=== PATIENT | male | born 1935 | race Caucasian/White ===

== ENCOUNTER 2016-09-27 20:21 | Emergency (ER) | payer MEDICARE, OTHER ==
[2016-09-27] MEDS ORDERED: solu-MEDROL 125 MG IV ONE (20:30)
[2016-09-27] MEDS ORDERED: Sodium Chloride 0.9% 1000 ML 1,000 ML IV SCH (20:30)
[2016-09-27] MEDS ORDERED: BENADRYL 50 MG/ML IV ONE (20:30)
[2016-09-27] MEDS ORDERED: BENADRYL 50 MG/ML ONE (20:35)
[2016-09-27] MEDS ORDERED: Sodium Chloride 0.9% 1000 ML 1,000 ML ONE (20:35)
[2016-09-27] MEDS ORDERED: solu-MEDROL 125 MG ONE (20:35)
[2016-09-27 20:45] LABS: BASOPHIL % 0.2 % (0.0-0.4); Eosinophil % 2.4 % (0.00-5.0); Granulocytes % 51.1 % (36.0-66.0); Lymphocytes % 37.7 % (24.0-44.0); Mean Platelet Volume 9.8 fl (6-9.5); Monocytes % 8.6 % (0.0-12.0); Platelet Count 169 K/mm3 (150-450); Red Blood Count 5.38 M/mm3 (4.1-5.6); Red Cell Distribution Width 14.1 % (11.5-14.0); White Blood Count 9.9 K/mm3 (4.0-10.5)
--- NOTE | 2016-09-27 20:52 | ERPHSYRPT ---
- History of Present Illness Time Seen by Provider: 09/27/16 20:21 Source: patient Exam Limitations: no limitations Patient Subjective Stated Complaint: pt states that he began taking levaquin and xarelto today. states within half and hour of taking medication he began having itching and swelling. denies any difficulty breathing or swallowing Triage Nursing Assessment: pt alert and oriented, asnwers questions approp. pt ambulatory with steady gait ntoed. respiration nonlabored with lungs cta. face flushed with mild swelling to face and ears. pt denies difficulty breathing, red raised rash to abd, legs, back. Physician History: ONE HOUR AGO PT TOOK LEVAQUIN AND XARELTO BOTH FOR THE FIRST TIME FOR SWELLING IN THE LEGS AND REDNESS OF THE RIGHT LEG FOR THE PAST 3 DAYS. ABOUT 30 MINUTES AGO PT STARTED WITH ITCHING, SWELLING OF THE FACE AND GENERALIZED RED RASH. PT DENIES TIGHTNESS IN THE THROAT, SHORTNESS OF AIR, CHEST PAIN. Allergies/Adverse Reactions: levofloxacin [From Levaquin] Allergy (Verified 09/27/16 20:41) Rash Home Medications: Bumetanide 1 mg [Bumex 1 mg] 2 mg PO DAILY 09/27/16 [History] Hx Tetanus, Diphtheria Vaccination/Date Given: No (unsure) Hx Influenza Vaccination/Date Given: Yes (2016) Hx Pneumococcal Vaccination/Date Given: No Immunizations Up to Date: No - Review of Systems Constitutional: No Fever Ears, Nose, & Throat: No Throat Swelling Respiratory: No Dyspnea Cardiac: No Chest Pain Abdominal/Gastrointestinal: No Abdominal Pain, No Vomiting Musculoskeletal: Other (SWELLING OF LOWER LEGS; ERYTHEMA OF RIGHT LEG.) Skin: Rash, Other (FACIAL SWELLING) All Other Systems: Reviewed and Negative - Past Medical History Pertinent Past Medical History: Yes Cardiac History: Deep Vein Thrombosis Musculoskeletal History: Degenerative Disk Disease Male Reproductive Disorders: Prostate Problems - Past Surgical History Past Surgical History: Yes Gastrointestinal: Appendectomy Male Surgical History: Prostate Surgery - Social History Smoking Status: Never smoker Exposure to second hand smoke: No Drug Use: none Patient Lives Alone: No - Nursing Vital Signs Nursing Vital Signs: Initial Vital Signs Respiratory Rate 18 09/27/16 20:28 Blood Pressure 165/100 09/27/16 20:28 O2 Sat by Pulse Oximetry 99 09/27/16 20:28 Pain Scale Pain Intensity 0 - Physical Exam General Appearance: alert Eye Exam: PERRL/EOMI Ears, Nose, Throat Exam: pharynx normal, moist mucous membranes, other (NO PHARYNGEAL EDEMA) Neck Exam: full range of motion Respiratory Exam: lungs clear Cardiovascular Exam: normal heart sounds Gastrointestinal/Abdomen Exam: soft, normal bowel sounds Back Exam: normal range of motion Extremity Exam: swelling (+2 EDEMA OF RIGHT LOWER LEG WITH MILD ERYTHEMA; +1 EDEMA OF LEFT LOWER LEG.) Neurologic Exam: alert, cooperative Skin Exam: rash (DIFFUSE MACULAR ERYTHEMA; HIVES OVER LOWER ABDOMEN.) SpO2 Interpretation: normal SpO2: 99 Oxygen Delivery: Room Air - Course Nursing assessment & vital signs reviewed: Yes - Radiology Ultrasound Exam Venous Lower Extremity Ultrasound: Other (TECH REPORT: NO DVT IN EITHER LEG.) Ordered Tests: Active Orders 24 hr Category Date Time Status IV Insertion STAT Care 09/27/16 20:30 Active Pulse Oximetry (ED) STAT Care 09/27/16 20:30 Active VENOUS BILATERAL EXTREMITY [US] Stat Exams 09/27/16 20:34 Taken CBC W DIFF Stat Lab 09/27/16 20:40 Completed CMP Stat Lab 09/27/16 20:40 Completed CULTURE,URINE Stat Lab 09/27/16 21:00 Received MAGNESIUM Stat Lab 09/27/16 20:40 Completed PROTIME WITH INR Stat Lab 09/27/16 20:40 Completed PTT Stat Lab 09/27/16 20:40 Completed UA W/ MICROSCOPIC Stat Lab 09/27/16 21:00 Completed Medication Summary Generic Name Dose Route Start Last Admin Trade Name Freq PRN Reason Stop Dose Admin Sodium Chloride 1,000 mls @ 100 mls/hr 09/27/16 20:30 09/27/16 20:35 Sodium Chloride 0.9% 1000 Ml IV 10/27/16 20:29 100 mls/hr .Q10H ALDO Administration Discontinued Medications Generic Name Dose Route Start Last Admin Trade Name Freq PRN Reason Stop Dose Admin Diphenhydramine HCl 50 mg 09/27/16 20:30 09/27/16 20:35 Benadryl 50 Mg/Ml IV 09/27/16 20:31 50 mg STAT ONE Administration Diphenhydramine HCl Confirm 09/27/16 20:35 Benadryl 50 Mg/Ml Administered 09/27/16 20:36 Dose 50 mg .ROUTE .STK-MED ONE Methylprednisolone Sodium Succinate 125 mg 09/27/16 20:30 09/27/16 20:35 Solu-Medrol 125 Mg IV 09/27/16 20:31 125 mg STAT ONE Administration Methylprednisolone Sodium Succinate Confirm 09/27/16 20:35 Solu-Medrol 125 Mg Administered 09/27/16 20:36 Dose 125 mg .ROUTE .STK-MED ONE Lab/Rad Data: Laboratory Result Diagrams 09/27/16 20:40 09/27/16 20:40 Laboratory Results 09/27/16 09/27/16 09/27/16 Range/Units 21:00 20:40 20:40 WBC (4.0-10.5) K/mm3 RBC (4.1-5.6) M/mm3 Hgb (12.5-18.0) gm/dl Hct (42-50) % MCV (78-100) fl MCH (26-32) pg MCHC (32-36) g/dl RDW (11.5-14.0) % Plt Count (150-450) K/mm3 MPV (6-9.5) fl Gran % (36.0-66.0) % Lymphocytes % (24.0-44.0) % Monocytes % (0.0-12.0) % Eosinophils % (0.00-5.0) % Basophils % (0.0-0.4) % Basophils # (0-0.4) INR 4.93 H (0.8-3.0) APTT 46.0 H (24.1-36.1) SECONDS Sodium (136-145) mEq/L Potassium (3.5-5.1) mEq/L Chloride (98-107) mEq/L Carbon Dioxide (21-32) mEq/L Anion Gap (5-15) MEQ/L BUN (9-20) mg/dL Creatinine (0.55-1.30) mg/dl Estimated GFR ML/MIN Glucose (70-110) MG/DL Calcium (8.5-10.1) mg/dL Magnesium 1.7 L (1.8-2.4) mg/dL Total Bilirubin (0.2-1.0) mg/dL AST (15-37) U/L ALT (12-78) U/L Alkaline Phosphatase (46-116) U/L Serum Total Protein (6.4-8.2) gm/dL Albumin (3.4-5.0) g/dL Ur Collection Type VOID Urine Color YELLOW (YELLOW) Urine Appearance SLIGHTLY CLOUDY (CLEAR) Urine pH 5.0 (5-6) Ur Specific Palmer 1.015 (1.005-1.025) Urine Protein NEGATIVE (Negative) Urine Ketones NEGATIVE (NEGATIVE) Urine Blood 50 (0-5) Jose/ul Urine Nitrite NEGATIVE (NEGATIVE) Urine Bilirubin NEGATIVE (NEGATIVE) Urine Urobilinogen NORMAL (0-1) mg/dL Ur Leukocyte Esterase 2+ (NEGATIVE) Urine Microscopic RBC 2-5 (0-2) /HPF Urine Microscopic WBC 25-50 (0-5) /HPF Ur Epithelial Cells MODERATE (FEW) /HPF Urine Bacteria FEW (NEGATIVE) /HPF Urine Mucus SLIGHT (NEGATIVE) /HPF Urine Glucose NEGATIVE (NEGATIVE) mg/dL Specimen Received 09/27/16 2100 09/27/16 09/27/16 Range/Units 20:40 20:40 WBC 9.9 (4.0-10.5) K/mm3 RBC 5.38 (4.1-5.6) M/mm3 Hgb 16.7 (12.5-18.0) gm/dl Hct 47.9 (42-50) % MCV 89.0 (78-100) fl MCH 31.0 (26-32) pg MCHC 34.9 (32-36) g/dl RDW 14.1 H (11.5-14.0) % Plt Count 169 (150-450) K/mm3 MPV 9.8 H (6-9.5) fl Gran % 51.1 (36.0-66.0) % Lymphocytes % 37.7 (24.0-44.0) % Monocytes % 8.6 (0.0-12.0) % Eosinophils % 2.4 (0.00-5.0) % Basophils % 0.2 (0.0-0.4) % Basophils # 0.02 (0-0.4) INR (0.8-3.0) APTT (24.1-36.1) SECONDS Sodium 141 (136-145) mEq/L Potassium 3.9 (3.5-5.1) mEq/L Chloride 103 (98-107) mEq/L Carbon Dioxide 28.3 (21-32) mEq/L Anion Gap 13.1 (5-15) MEQ/L BUN 24 H (9-20) mg/dL Creatinine 1.66 H (0.55-1.30) mg/dl Estimated GFR 43 ML/MIN Glucose 145 H (70-110) MG/DL Calcium 9.4 (8.5-10.1) mg/dL Magnesium (1.8-2.4) mg/dL Total Bilirubin 0.80 (0.2-1.0) mg/dL AST 31 (15-37) U/L ALT 28 (12-78) U/L Alkaline Phosphatase 78 (46-116) U/L Serum Total Protein 7.1 (6.4-8.2) gm/dL Albumin 3.6 (3.4-5.0) g/dL Ur Collection Type Urine Color (YELLOW) Urine Appearance (CLEAR) Urine pH (5-6) Ur Specific Palmer (1.005-1.025) Urine Protein (Negative) Urine Ketones (NEGATIVE) Urine Blood (0-5) Jose/ul Urine Nitrite (NEGATIVE) Urine Bilirubin (NEGATIVE) Urine Urobilinogen (0-1) mg/dL Ur Leukocyte Esterase (NEGATIVE) Urine Microscopic RBC (0-2) /HPF Urine Microscopic WBC (0-5) /HPF Ur Epithelial Cells (FEW) /HPF Urine Bacteria (NEGATIVE) /HPF Urine Mucus (NEGATIVE) /HPF Urine Glucose (NEGATIVE) mg/dL Specimen Received - Progress Discussed with : Other (SPOKE WITH Magda AVILEZ(FOR DR WEN)([id number]) WHO ACCEPTED PT FOR TRANSFER TO [facility] A DIRECT ADMISSION.) - Departure Time of Disposition: 22:34 Departure Disposition: Transfer ([facility]) Clinical Impression: ALLERGIC REACTION TO LEVAQUIN/XARELTO, UTI, CELLULITIS OF RIGHT LEG Condition: Stable Critical Care Time: No Referrals: PEYTON SALINAS [Primary Care Provider] -
[2016-09-27 21:11] LABS: INR 4.93 (0.8-3.0); PROTIME 56.6 SECONDS (8.83-12.87)
[2016-09-27 21:20] LABS: ALBUMIN 3.6 g/dL (3.4-5.0); ANION GAP 13.1 MEQ/L (5-15); BILIRUBIN,TOTAL 0.8 mg/dL (0.2-1.0); Carbon Dioxide 28.3 mEq/L (21-32); Potassium 3.9 mEq/L (3.5-5.1); Total Protein 7.1 gm/dL (6.4-8.2)
[2016-09-27 21:32] LABS: Bilirubin NEGATIVE (NEGATIVE); Blood 50 Ery/ul (0-5); COMPLETE URINE MICROSCOPIC? YES; Collection Type VOID; Glucose NEGATIVE (NEGATIVE); Leukocyte Esterase 2+ (NEGATIVE)
[2016-09-27 21:33] LABS: ADD URINE CULTURE? YES (NO); Bacteria FEW /HPF (NEGATIVE); Epithelial Cells MODERATE /HPF (FEW); Mucus SLIGHT /HPF (NEGATIVE); WBC 25-50 /HPF (0-5)
[2016-09-27 23:13] VITALS: BP 140/85; PULSE 84; O2SAT 98
--- NOTE | 2016-09-28 09:02 | XRAY ---
Indication: Edema. Two-dimensional sonogram and color Doppler imaging of the major venous vessels of the left and right leg was performed. Comparison: None Alligator Trapper notes difficult exam due to body habitus. No thrombus seen in the examined deep venous vessels of the left and right leg including greater saphenous vein. Veins demonstrate normal compressibility. Venous waveforms are normal with and without augmentation. Impression: Left and right leg negative for DVT. Comment: Preliminary report was given.
== END 2016-09-27 23:20 | disposition short-term general hospital (02) ==
LOC: ED 20:21
DX: T37.8X5A Adverse effect of other specified systemic anti-infectives and antiparasitics, initial encounter (principal); T45.515A Adverse effect of anticoagulants, initial encounter; L03.115 Cellulitis of right lower limb
CPT/HCPCS: 36000; 36415; 80053; 81000; 83735; 85025; 85610; 85730; 87086; 93970; 96360; 96361; 99285; J1200; J2930

== ENCOUNTER 2019-05-05 14:56 | Inpatient (IN) | payer MEDICARE, OTHER ==
[2019-05-05] MEDS ORDERED: SUBLIMAZE 100 MCG/2 ML IV ONE (15:32)
[2019-05-05] MEDS ORDERED: Zofran 4 MG/2 ML VIAL IV ONE ×2 (15:32→19:18)
[2019-05-05] MEDS ORDERED: Protonix 40MG Tablet PO ONE (15:32)
[2019-05-05] MEDS ORDERED: Zofran 4 MG/2 ML VIAL ONE ×2 (15:41→19:04)
[2019-05-05] MEDS ORDERED: SUBLIMAZE 100 MCG/2 ML ONE (15:41)
[2019-05-05] MEDS ORDERED: Protonix 40MG Tablet ONE (15:41)
[2019-05-05 16:08] LABS: Absolute Neutrophil Ct (ANC) 7.49 (1.4-6.9); BASOPHIL % 0.2 % (0.0-0.4); Basophil (Absolute #) 0.02 (0-0.4); Eosinophil % 0.2 % (0.00-5.0); Eosinophil (Absolute #) 0.02 (0-0.5); Hematocrit 43.8 % (42-50); Hemoglobin 15.4 gm/dl (12.5-18.0); Lymphocyte (Absolute #) 0.68 (1.0-4.6); Lymphocytes % 7.5 % (24.0-44.0); Mean Cell Volume 88.8 fl (78-100); Mean Corpuscular Hemoglobin 31.2 pg (26-32); Mean Corpuscular Hgb Concent. 35.2 g/dl (32-36); Monocyte (Absolute #) 0.83 (0.0-1.3); Monocytes % 9.2 % (0.0-12.0); Neutrophil % 82.9 % (36.0-66.0); Platelet Count 162 K/mm3 (150-450); Red Blood Count 4.93 M/mm3 (4.1-5.6); Red Cell Distribution Width 13.6 % (11.5-14.0)
[2019-05-05] MEDS: Sodium Chloride 0.9% 1000 ML 1,000 ML IV SCH ×2 (16:15→21:17)
[2019-05-05 16:24] LABS: ANION GAP 11.6 MEQ/L (5-15); BILIRUBIN,TOTAL 1.1 mg/dL (0.2-1.3); Calcium 9.5 mg/dL (8.4-10.2); Creatinine 1 1.39 mg/dL (0.66-1.25); Potassium 3.9 mmol/L (3.5-5.1); Total Protein 7.2 g/dL (6.3-8.2)
[2019-05-05] MEDS ORDERED: Hydromorphone 1 mg/ml Ampule IV ONE (17:03)
--- NOTE | 2019-05-05 17:14 | XRAY ---
Indication: Abdomen pain and vomiting. Comparison: None Portable chest demonstrates CT proven bibasilar atelectasis/scarring. Remaining heart and upper lungs unremarkable. Bony thorax intact with mild osteopenia and degenerative changes.
--- NOTE | 2019-05-05 17:17 | XRAY ---
Indication: Abdomen pain and vomiting. Multiple contiguous axial images obtained through the abdomen and pelvis without contrast as ordered. Comparison: CT abdomen April 23, 2009. Lung bases now demonstrates bibasilar atelectasis/scarring. No infiltrate or effusion. Heart is not enlarged. Stable small hiatal hernia. Noncontrasted stomach and bowel loops appear nonobstructed. Patient reports appendectomy. New IVC filter in situ. There is again tiny mid abdomen mesenteric nodes with minimal stranding, possible adenitis. No pathologic lymphadenopathy. Right lobe of the liver demonstrates minimally enlarging 2 cysts, largest measuring 3 cm previously 2.5 cm. Both kidneys demonstrates interval enlarging cysts, largest left midpole measuring 3.7 cm, previously 1.6 cm. Left mid kidney also demonstrates a 2.9 cm slightly dense/complex mass, previously measuring 1.5 cm. No free fluid/air. Spleen remains enlarged today measuring 13.8 cm. Remaining liver, gallbladder, pancreas, spleen, adrenal glands, kidneys, ureters, and bladder appear unremarkable for noncontrast exam. Minimal aortoiliac calcifications without AAA. Osseous structures again demonstrates osteopenia and mild/moderate degenerative changes throughout the spine. Impression: 1. Again tiny mid abdomen mesenteric nodes with minimal stranding favoring mesenteric adenitis. 2. Interval enlarging bilateral renal cysts including left mid renal slightly dense/complex mass. Renal sonogram may yield further information and help differentiate solid versus cyst if not already performed. Also minimally enlarging hepatic cysts. 3. Stable small hiatal hernia and 13.8 cm splenomegaly. 3. Remaining CT abdomen/pelvis without contrast exam is negative.
[2019-05-05] MEDS ORDERED: Hydromorphone 1 mg/ml Ampule ONE (17:24)
--- NOTE | 2019-05-05 19:03 | ERPHSYRPT ---
- History of Present Illness Time Seen by Provider: 05/05/19 15:35 Patient Subjective Stated Complaint: Pt began vomiting today and having medial epigastric pain, pt has vomited 3 times today, pt denies diarrhea, pt rates his pain 6/10 Triage Nursing Assessment: Pt brought to the ER by his daughter, pt states that he has only vomited 3 times today, coughing, lots of sinus drainage, states that his stomach has been bothering him for a couple of days, doesn't appear to be in any distress, Physician History: *Lisandro Amaro is a 84-year-old white male who presents with vomiting and abdominal pain. His stomach started hurting him in the periumbilical area for 5 days prior to this visit. Today he started vomiting he has had no diarrhea minimal fever he is normally constipated but has had a good bowel movement is only previous surgery was appendectomy many years ago Timing/Duration: day(s) (5) Activities at Onset: none Quality: cramping Abdominal Pain Onset Location: periumbilical Pain Radiation: no radiation Severity of Pain-Max: moderate Severity of Pain-Current: moderate Modifying Factors: Improves With: vomiting Associated Symptoms: nausea, vomiting Allergies/Adverse Reactions: levofloxacin [From Levaquin] Allergy (Verified 05/05/19 15:32) Rash Home Medications: Bumetanide 1 mg [Bumex 1 mg] 2 mg PO DAILY 09/27/16 [History] Apixaban [Eliquis] 5 mg PO BID 05/05/19 [History] Hx Tetanus, Diphtheria Vaccination/Date Given: No (unsure) Hx Influenza Vaccination/Date Given: Yes (2016) Hx Pneumococcal Vaccination/Date Given: No Travel Risk - International Travel Have you traveled outside of the country in past 3 weeks: No Have you or anyone close to you been diagnosed with or: No Do your reside in a community with a known COVID-19 case?: No - Coronavirus Screening Has patient experienced Coronavirus symptoms: No - Review of Systems Constitutional: No Fever, No Chills Eyes: No Symptoms Ears, Nose, & Throat: No Symptoms Respiratory: No Cough, No Dyspnea Cardiac: No Chest Pain, No Edema, No Syncope Abdominal/Gastrointestinal: Abdominal Pain, Nausea, Vomiting, No Diarrhea Genitourinary Symptoms: No Dysuria Musculoskeletal: No Back Pain, No Neck Pain Skin: No Rash Neurological: No Dizziness, No Focal Weakness, No Sensory Changes Psychological: No Symptoms Endocrine: No Symptoms All Other Systems: Reviewed and Negative - Past Medical History Pertinent Past Medical History: Yes Cardiac History: Deep Vein Thrombosis Musculoskeletal History: Degenerative Disk Disease Male Reproductive Disorders: Prostate Problems - Past Surgical History Past Surgical History: Yes Gastrointestinal: Appendectomy Male Surgical History: Prostate Surgery Other Surgical History: filter in the right groin for dvt - Social History Smoking Status: Never smoker Exposure to second hand smoke: No Drug Use: none Patient Lives Alone: No - Nursing Vital Signs Nursing Vital Signs: Initial Vital Signs Temperature 98.0 F 05/05/19 15:08 Pulse Rate 86 05/05/19 15:08 Blood Pressure 143/84 05/05/19 15:08 O2 Sat by Pulse Oximetry 98 05/05/19 15:08 Pain Scale Pain Intensity 4 - Physical Exam General Appearance: moderate distress, alert Eye Exam: PERRL/EOMI, eyes nml inspection Ears, Nose, Throat Exam: normal ENT inspection, pharynx normal, moist mucous membranes Neck Exam: normal inspection, non-tender, supple, full range of motion Respiratory Exam: normal breath sounds, lungs clear, No respiratory distress Cardiovascular Exam: regular rate/rhythm, normal heart sounds Gastrointestinal/Abdomen Exam: normal bowel sounds, tenderness, guarding, No mass, No rebound Back Exam: normal inspection, normal range of motion, No CVA tenderness, No vertebral tenderness Extremity Exam: normal inspection, normal range of motion, pelvis stable Neurologic Exam: alert, oriented x 3, cooperative, normal mood/affect, nml cerebellar function, sensation nml, No motor deficits Skin Exam: normal color, warm, dry Lymphatic Exam: No adenopathy SpO2 Interpretation: normal SpO2: 99 O2 Delivery: Room Air - Course Nursing assessment & vital signs reviewed: Yes - CT Exams Abdomen/Pelvis CT Interpretation: Other (Mesenteric adenitis) Ordered Tests: Active Orders 24 hr Category Date Time Status EKG-ER Only STAT Care 05/05/19 15:32 Active IV Insertion STAT Care 05/05/19 15:32 Active ABDOMEN AND PELVIS W/0 CONTRAS [CT] Stat Exams 05/05/19 15:33 Completed CHEST 1 VIEW (PORTABLE) Stat Exams 05/05/19 15:33 Completed AMYLASE Stat Lab 05/05/19 15:55 Completed CBC W DIFF Stat Lab 05/05/19 15:55 Completed CMP Stat Lab 05/05/19 15:55 Completed LIPASE Stat Lab 05/05/19 15:55 Completed Lactic Acid Stat Lab 05/05/19 15:32 Completed TROPONIN Q3H Lab 05/05/19 15:55 Completed TROPONIN Q3H Lab 05/05/19 18:45 Ordered TROPONIN Q3H Lab 05/05/19 21:45 Ordered TROPONIN Q3H Lab 05/06/19 00:45 Ordered TROPONIN Q3H Lab 05/06/19 03:45 Ordered UA W/RFX UR CULTURE Stat Lab 05/05/19 15:33 Uncollected Transfer Order Routine Transfer 05/05/19 Ordered Medication Summary Generic Name Dose Route Start Last Admin Trade Name Freq PRN Reason Stop Dose Admin Sodium Chloride 1,000 mls @ 100 mls/hr 05/05/19 15:45 05/05/19 16:15 Sodium Chloride 0.9% 1000 Ml IV 06/04/19 15:44 100 mls/hr .Q10H ALDO Administration Discontinued Medications Generic Name Dose Route Start Last Admin Trade Name Freq PRN Reason Stop Dose Admin Fentanyl Citrate 50 mcg 05/05/19 15:32 05/05/19 16:13 Sublimaze 100 Mcg/2 Ml IV 05/05/19 15:33 50 mcg STAT ONE Administration Fentanyl Citrate Confirm 05/05/19 15:41 Sublimaze 100 Mcg/2 Ml Administered 05/05/19 15:42 Dose 100 mcg .ROUTE .STK-MED ONE Hydromorphone HCl 1 mg 05/05/19 17:03 05/05/19 17:26 Hydromorphone 1 Mg/Ml Ampule IV 05/05/19 17:04 1 mg STAT ONE Administration Hydromorphone HCl Confirm 05/05/19 17:24 Hydromorphone 1 Mg/Ml Ampule Administered 05/05/19 17:25 Dose 1 mg .ROUTE .STK-MED ONE Ondansetron HCl 4 mg 05/05/19 15:32 05/05/19 16:14 Zofran 4 Mg/2 Ml Vial IV 05/05/19 15:33 4 mg STAT ONE Administration Ondansetron HCl Confirm 05/05/19 15:41 Zofran 4 Mg/2 Ml Vial Administered 05/05/19 15:42 Dose 4 mg .ROUTE .STK-MED ONE Pantoprazole Sodium 40 mg 05/05/19 15:32 05/05/19 16:12 Protonix 40mg Tablet PO 05/05/19 15:33 40 mg STAT ONE Administration Pantoprazole Sodium Confirm 05/05/19 15:41 Protonix 40mg Tablet Administered 05/05/19 15:42 Dose 40 mg .ROUTE .STK-MED ONE Lab/Rad Data: Laboratory Result Diagrams 05/05/19 15:55 05/05/19 15:55 Laboratory Results 05/05/19 05/05/19 05/05/19 Range/Units 15:55 15:55 15:55 WBC 9.0 (4.0-10.5) K/mm3 RBC 4.93 (4.1-5.6) M/mm3 Hgb 15.4 (12.5-18.0) gm/dl Hct 43.8 (42-50) % MCV 88.8 (78-100) fl MCH 31.2 (26-32) pg MCHC 35.2 (32-36) g/dl RDW 13.6 (11.5-14.0) % Plt Count 162 (150-450) K/mm3 MPV 9.0 (7.5-11.0) fl Gran % 82.9 H (36.0-66.0) % Eos # (Auto) 0.02 (0-0.5) Absolute Lymphs (auto) 0.68 L (1.0-4.6) Absolute Monos (auto) 0.83 (0.0-1.3) Lymphocytes % 7.5 L (24.0-44.0) % Monocytes % 9.2 (0.0-12.0) % Eosinophils % 0.2 (0.00-5.0) % Basophils % 0.2 (0.0-0.4) % Absolute Granulocytes 7.49 H (1.4-6.9) Basophils # 0.02 (0-0.4) Sodium 137 (137-145) mmol/L Potassium 3.9 (3.5-5.1) mmol/L Chloride 98 (98-107) mmol/L Carbon Dioxide 31 H (22-30) mmol/L Anion Gap 11.6 (5-15) MEQ/L BUN 19 (9-20) mg/dL Creatinine 1.39 H (0.66-1.25) mg/dL Estimated GFR 51.9 ML/MIN Glucose 136 H (74-106) mg/dL Lactic Acid (0.4-2.0) Calcium 9.5 (8.4-10.2) mg/dL Total Bilirubin 1.10 (0.2-1.3) mg/dL AST 28 (17-59) U/L ALT 21 (0-50) U/L Alkaline Phosphatase 78 (38-126) U/L Troponin I < 0.012 (0.000-0.034) ng/mL Serum Total Protein 7.2 (6.3-8.2) g/dL Albumin 4.0 (3.5-5.0) g/dL Amylase 48 (30-110) U/L Lipase 50 (23-300) U/L 05/05/19 Range/Units 15:32 WBC (4.0-10.5) K/mm3 RBC (4.1-5.6) M/mm3 Hgb (12.5-18.0) gm/dl Hct (42-50) % MCV (78-100) fl MCH (26-32) pg MCHC (32-36) g/dl RDW (11.5-14.0) % Plt Count (150-450) K/mm3 MPV (7.5-11.0) fl Gran % (36.0-66.0) % Eos # (Auto) (0-0.5) Absolute Lymphs (auto) (1.0-4.6) Absolute Monos (auto) (0.0-1.3) Lymphocytes % (24.0-44.0) % Monocytes % (0.0-12.0) % Eosinophils % (0.00-5.0) % Basophils % (0.0-0.4) % Absolute Granulocytes (1.4-6.9) Basophils # (0-0.4) Sodium (137-145) mmol/L Potassium (3.5-5.1) mmol/L Chloride (98-107) mmol/L Carbon Dioxide (22-30) mmol/L Anion Gap (5-15) MEQ/L BUN (9-20) mg/dL Creatinine (0.66-1.25) mg/dL Estimated GFR ML/MIN Glucose (74-106) mg/dL Lactic Acid 1.7 (0.4-2.0) Calcium (8.4-10.2) mg/dL Total Bilirubin (0.2-1.3) mg/dL AST (17-59) U/L ALT (0-50) U/L Alkaline Phosphatase (38-126) U/L Troponin I (0.000-0.034) ng/mL Serum Total Protein (6.3-8.2) g/dL Albumin (3.5-5.0) g/dL Amylase (30-110) U/L Lipase (23-300) U/L - Progress Progress: unchanged - Departure Departure Disposition: Observation Clinical Impression: Mesenteric adenitis Condition: Fair Critical Care Time: No Referrals: PEYTON SALINAS [Primary Care Provider] -
[2019-05-05] MEDS: KEFZOL 1 GM/50 ML PREMIX** 1 GM/50 ML IVPB IV SCH (21:18)
[2019-05-05] MEDS: ELIQUIS 2.5 MG TABLET PO SCH (21:18)
[2019-05-06 04:03] LABS: Appearance CLEAR (CLEAR); Bacteria RARE /HPF (NEGATIVE); Bilirubin NEGATIVE (NEGATIVE); Blood SMALL Ery/ul (0-5); Epithelial Cells RARE /HPF (FEW); Glucose NEGATIVE (NEGATIVE); Ketones NEGATIVE (NEGATIVE); Leukocyte Esterase SMALL (NEGATIVE); Mucus SLIGHT /HPF (NEGATIVE); Nitrite NEGATIVE (NEGATIVE); Protein,Urine Dip NEGATIVE (Negative); RBC 51-100 /HPF (0-2); Specific Gravity 1.021 (1.005-1.025); Urobilinogen 4 mg/dL (0-1)
[2019-05-06 05:27] LABS: INR 1.89 (0.8-3.0); PROTIME 21.6 SECONDS (8.83-12.87)
[2019-05-06] MEDS: KEFZOL 1 GM/50 ML PREMIX** 1 GM/50 ML IVPB IV SCH ×3 (06:03→21:22)
[2019-05-06] MEDS: Sodium Chloride 0.9% 1000 ML 1,000 ML IV SCH ×2 (08:09→18:22)
[2019-05-06] MEDS: BUMEX 1 MG PO SCH (09:46)
[2019-05-06] MEDS: ELIQUIS 2.5 MG TABLET PO SCH ×2 (09:46→21:22)
[2019-05-06] MEDS ORDERED: ELIQUIS 2.5 MG TABLET PO SCH (10:00)
[2019-05-06] MEDS: Zofran 4 MG/2 ML VIAL IV PRN (10:42)
[2019-05-06] MEDS: DILAUDID 2 MG INJECTION IV PRN (11:28)
--- NOTE | 2019-05-06 11:28 | PCM.HP ---
History of Present Illness - Chief Complaint Chief Complaint: nausea and vomiting and diarrhea for 2-3 days History of Present Illness: is a 84-year-old white male who presents with vomiting and abdominal pain. His stomach started hurting him in the periumbilical area for 5 days prior to this visit. Today he started vomiting he has had no diarrhea minimal fever he is normally constipated but has had a good bowel movement is only previous surgery was appendectomy many years ago Timing/Duration: day(s) (5) Activities at Onset: none Quality: cramping Abdominal Pain Onset Location: periumbilical Pain Radiation: no radiation Severity of Pain-Max: moderate Severity of Pain-Current: moderate Modifying Factors: Improves With: vomiting Associated Symptoms: nausea, vomiting - Review of Systems Constitutional: Fatigue, Lethargy, Weakness, No Fever, No Chills Eyes: No Symptoms Ears, Nose, & Throat: No Symptoms Respiratory: No Cough, No Short Of Breath Cardiac: No Chest Pain, No Edema, No Syncope Abdominal/Gastrointestinal: Nausea, Vomiting, Diarrhea, Appetite Changes, No Abdominal Pain Genitourinary Symptoms: No Dysuria Musculoskeletal: No Back Pain, No Neck Pain Skin: No Rash Neurological: No Dizziness, No Focal Weakness, No Sensory Changes Psychological: No Symptoms Endocrine: No Symptoms Hematologic/Lymphatic: No Symptoms Immunological/Allergic: No Symptoms Medications & Allergies Home Medications: Home Medication List Bumetanide 1 mg [Bumex 1 mg] 2 mg PO DAILY 09/27/16 [History Confirmed ] Apixaban [Eliquis] 5 mg PO BID 05/05/19 [History Confirmed 05/05/19] Allergies/Adverse Reactions: Allergies Allergy/AdvReac Type Severity Reaction Status Date / Time levofloxacin [From Levaquin] Allergy Rash Verified 05/05/19 15:32 - Past Medical History Past Medical History: Yes Neurological History: Peripheral Neuropathy ENT History: No Pertinent History Cardiac History: No Pertinent History, Deep Vein Thrombosis Respiratory History: Sleep Apnea Endocrine Medical History: No Pertinent History Musculoskelatal History: Degenerative Disk Disease GI Medical History: No Pertinent History History: No Pertinent History Pyscho-Social History: No Pertinent History Male Reproductive Disorders: Prostate Problems - Past Surgical History Past Surgical History: Yes Neuro Surgical History: No Pertinent History Cardiac History: No Pertinent History Respiratory Surgery: No Pertinent History GI Surgical History: Appendectomy Genitourinary Surgical Hx: No Pertinent History Musculskeletal Surgical Hx: No Pertinent History Male Surgical History: Prostate Surgery Other Surgical History: filter in the right groin for dvt - Social History Smoking Status: Never smoker Exposure to second hand smoke: No Alcohol: None Drug Use: none - Physical Exam Vital Signs: Vital Signs - 24 hr Temp Pulse Resp BP Pulse Ox 05/06/19 08:00 99.8 F 85 18 131/78 96 05/06/19 07:55 100 05/06/19 04:00 98.2 F 87 22 166/77 100 05/06/19 00:00 97.5 F 79 20 127/66 96 05/05/19 21:41 96 05/05/19 20:27 98.5 F 84 24 147/98 93 L 05/05/19 19:37 98.5 F 84 24 147/98 93 L 05/05/19 19:03 99 05/05/19 18:47 76 18 131/91 99 05/05/19 17:03 81 138/79 94 L 05/05/19 17:01 87 18 138/79 90 L 05/05/19 15:08 98.0 F 86 143/84 98 Oxygen-Last 24 hours Oxygen Flowrate (L/min)-RT 2 Oxygen Flowrate (L/min)-RT 2 General Appearance: no apparent distress, alert Neurologic Exam: alert, oriented x 3, cooperative, normal mood/affect, nml cerebellar function, nml station & gait, sensation nml, No motor deficits Eye Exam: PERRL/EOMI, eyes nml inspection Ears, Nose, Throat Exam: normal ENT inspection, TMs normal, pharynx normal, moist mucous membranes Neck Exam: normal inspection, non-tender, supple, full range of motion Respiratory Exam: normal breath sounds, lungs clear, No respiratory distress Cardiovascular Exam: regular rate/rhythm, normal heart sounds, normal peripheral pulses Gastrointestinal/Abdomen Exam: soft, normal bowel sounds, No tenderness, No mass Back Exam: normal inspection, normal range of motion, No CVA tenderness, No vertebral tenderness Extremity Exam: normal inspection, normal range of motion, pelvis stable Skin Exam: normal color, warm, dry, No rash Lymphatic Exam: No adenopathy Results - Labs Lab/Micro Results: Lab Results-Last 24 Hours 03/05/05/19 05/05/19 Range/Units 02:50 15:32 15:55 WBC 9.0 (4.0-10.5) K/mm3 RBC 4.93 (4.1-5.6) M/mm3 Hgb 15.4 (12.5-18.0) gm/dl Hct 43.8 (42-50) % MCV 88.8 (78-100) fl MCH 31.2 (26-32) pg MCHC 35.2 (32-36) g/dl RDW 13.6 (11.5-14.0) % Plt Count 162 (150-450) K/mm3 MPV 9.0 (7.5-11.0) fl Gran % 82.9 H (36.0-66.0) % Eos # (Auto) 0.02 (0-0.5) Absolute Lymphs (auto) 0.68 L (1.0-4.6) Absolute Monos (auto) 0.83 (0.0-1.3) Lymphocytes % 7.5 L (24.0-44.0) % Monocytes % 9.2 (0.0-12.0) % Eosinophils % 0.2 (0.00-5.0) % Basophils % 0.2 (0.0-0.4) % Absolute Granulocytes 7.49 H (1.4-6.9) Basophils # 0.02 (0-0.4) PT (8.83-12.87) SECONDS INR (0.8-3.0) Sodium (137-145) mmol/L Potassium (3.5-5.1) mmol/L Chloride (98-107) mmol/L Carbon Dioxide (22-30) mmol/L Anion Gap (5-15) MEQ/L BUN (9-20) mg/dL Creatinine (0.66-1.25) mg/dL Estimated GFR ML/MIN Glucose (74-106) mg/dL Lactic Acid 1.7 (0.4-2.0) Calcium (8.4-10.2) mg/dL Total Bilirubin (0.2-1.3) mg/dL AST (17-59) U/L ALT (0-50) U/L Alkaline Phosphatase (38-126) U/L Troponin I (0.000-0.034) ng/mL Serum Total Protein (6.3-8.2) g/dL Albumin (3.5-5.0) g/dL Amylase (30-110) U/L Lipase (23-300) U/L Urine Color WILLY (YELLOW) Urine Appearance CLEAR (CLEAR) Urine pH 6.0 (5-6) Ur Specific [place] 1.021 (1.005-1.025) Urine Protein NEGATIVE (Negative) Urine Ketones NEGATIVE (NEGATIVE) Urine Blood SMALL (0-5) Jose/ul Urine Nitrite NEGATIVE (NEGATIVE) Urine Bilirubin NEGATIVE (NEGATIVE) Urine Urobilinogen 4 (0-1) mg/dL Ur Leukocyte Esterase SMALL (NEGATIVE) Urine WBC (Auto) 16-25 (0-5) /HPF Urine RBC (Auto) 51-100 (0-2) /HPF U Epithel Cells (Auto) RARE (FEW) /HPF Urine Bacteria (Auto) RARE (NEGATIVE) /HPF Urine Mucus (Auto) SLIGHT (NEGATIVE) /HPF Urine Culture Reflexed YES (NO) Urine Glucose NEGATIVE (NEGATIVE) mg/dL 05/05/19 05/05/19 05/05/19 Range/Units 15:55 15:55 18:54 WBC (4.0-10.5) K/mm3 RBC (4.1-5.6) M/mm3 Hgb (12.5-18.0) gm/dl Hct (42-50) % MCV (78-100) fl MCH (26-32) pg MCHC (32-36) g/dl RDW (11.5-14.0) % Plt Count (150-450) K/mm3 MPV (7.5-11.0) fl Gran % (36.0-66.0) % Eos # (Auto) (0-0.5) Absolute Lymphs (auto) (1.0-4.6) Absolute Monos (auto) (0.0-1.3) Lymphocytes % (24.0-44.0) % Monocytes % (0.0-12.0) % Eosinophils % (0.00-5.0) % Basophils % (0.0-0.4) % Absolute Granulocytes (1.4-6.9) Basophils # (0-0.4) PT (8.83-12.87) SECONDS INR (0.8-3.0) Sodium 137 (137-145) mmol/L Potassium 3.9 (3.5-5.1) mmol/L Chloride 98 (98-107) mmol/L Carbon Dioxide 31 H (22-30) mmol/L Anion Gap 11.6 (5-15) MEQ/L BUN 19 (9-20) mg/dL Creatinine 1.39 H (0.66-1.25) mg/dL Estimated GFR 51.9 ML/MIN Glucose 136 H (74-106) mg/dL Lactic Acid (0.4-2.0) Calcium 9.5 (8.4-10.2) mg/dL Total Bilirubin 1.10 (0.2-1.3) mg/dL AST 28 (17-59) U/L ALT 21 (0-50) U/L Alkaline Phosphatase 78 (38-126) U/L Troponin I < 0.012 < 0.012 (0.000-0.034) ng/mL Serum Total Protein 7.2 (6.3-8.2) g/dL Albumin 4.0 (3.5-5.0) g/dL Amylase 48 (30-110) U/L Lipase 50 (23-300) U/L Urine Color (YELLOW) Urine Appearance (CLEAR) Urine pH (5-6) Ur Specific [place] (1.005-1.025) Urine Protein (Negative) Urine Ketones (NEGATIVE) Urine Blood (0-5) Jose/ul Urine Nitrite (NEGATIVE) Urine Bilirubin (NEGATIVE) Urine Urobilinogen (0-1) mg/dL Ur Leukocyte Esterase (NEGATIVE) Urine WBC (Auto) (0-5) /HPF Urine RBC (Auto) (0-2) /HPF U Epithel Cells (Auto) (FEW) /HPF Urine Bacteria (Auto) (NEGATIVE) /HPF Urine Mucus (Auto) (NEGATIVE) /HPF Urine Culture Reflexed (NO) Urine Glucose (NEGATIVE) mg/dL 05/05/19 05/06/19 05/06/19 Range/Units 22:00 01:03 03:55 WBC (4.0-10.5) K/mm3 RBC (4.1-5.6) M/mm3 Hgb (12.5-18.0) gm/dl Hct (42-50) % MCV (78-100) fl MCH (26-32) pg MCHC (32-36) g/dl RDW (11.5-14.0) % Plt Count (150-450) K/mm3 MPV (7.5-11.0) fl Gran % (36.0-66.0) % Eos # (Auto) (0-0.5) Absolute Lymphs (auto) (1.0-4.6) Absolute Monos (auto) (0.0-1.3) Lymphocytes % (24.0-44.0) % Monocytes % (0.0-12.0) % Eosinophils % (0.00-5.0) % Basophils % (0.0-0.4) % Absolute Granulocytes (1.4-6.9) Basophils # (0-0.4) PT (8.83-12.87) SECONDS INR (0.8-3.0) Sodium (137-145) mmol/L Potassium (3.5-5.1) mmol/L Chloride (98-107) mmol/L Carbon Dioxide (22-30) mmol/L Anion Gap (5-15) MEQ/L BUN (9-20) mg/dL Creatinine (0.66-1.25) mg/dL Estimated GFR ML/MIN Glucose (74-106) mg/dL Lactic Acid (0.4-2.0) Calcium (8.4-10.2) mg/dL Total Bilirubin (0.2-1.3) mg/dL AST (17-59) U/L ALT (0-50) U/L Alkaline Phosphatase (38-126) U/L Troponin I < 0.012 < 0.012 < 0.012 (0.000-0.034) ng/mL Serum Total Protein (6.3-8.2) g/dL Albumin (3.5-5.0) g/dL Amylase (30-110) U/L Lipase (23-300) U/L Urine Color (YELLOW) Urine Appearance (CLEAR) Urine pH (5-6) Ur Specific [place] (1.005-1.025) Urine Protein (Negative) Urine Ketones (NEGATIVE) Urine Blood (0-5) Jose/ul Urine Nitrite (NEGATIVE) Urine Bilirubin (NEGATIVE) Urine Urobilinogen (0-1) mg/dL Ur Leukocyte Esterase (NEGATIVE) Urine WBC (Auto) (0-5) /HPF Urine RBC (Auto) (0-2) /HPF U Epithel Cells (Auto) (FEW) /HPF Urine Bacteria (Auto) (NEGATIVE) /HPF Urine Mucus (Auto) (NEGATIVE) /HPF Urine Culture Reflexed (NO) Urine Glucose (NEGATIVE) mg/dL 05/06/19 05/06/19 Range/Units 03:57 04:30 WBC (4.0-10.5) K/mm3 RBC (4.1-5.6) M/mm3 Hgb (12.5-18.0) gm/dl Hct (42-50) % MCV (78-100) fl MCH (26-32) pg MCHC (32-36) g/dl RDW (11.5-14.0) % Plt Count (150-450) K/mm3 MPV (7.5-11.0) fl Gran % (36.0-66.0) % Eos # (Auto) (0-0.5) Absolute Lymphs (auto) (1.0-4.6) Absolute Monos (auto) (0.0-1.3) Lymphocytes % (24.0-44.0) % Monocytes % (0.0-12.0) % Eosinophils % (0.00-5.0) % Basophils % (0.0-0.4) % Absolute Granulocytes (1.4-6.9) Basophils # (0-0.4) PT 21.6 H (8.83-12.87) SECONDS INR 1.89 (0.8-3.0) Sodium (137-145) mmol/L Potassium (3.5-5.1) mmol/L Chloride (98-107) mmol/L Carbon Dioxide (22-30) mmol/L Anion Gap (5-15) MEQ/L BUN (9-20) mg/dL Creatinine (0.66-1.25) mg/dL Estimated GFR ML/MIN Glucose (74-106) mg/dL Lactic Acid 1.2 (0.4-2.0) Calcium (8.4-10.2) mg/dL Total Bilirubin (0.2-1.3) mg/dL AST (17-59) U/L ALT (0-50) U/L Alkaline Phosphatase (38-126) U/L Troponin I (0.000-0.034) ng/mL Serum Total Protein (6.3-8.2) g/dL Albumin (3.5-5.0) g/dL Amylase (30-110) U/L Lipase (23-300) U/L Urine Color (YELLOW) Urine Appearance (CLEAR) Urine pH (5-6) Ur Specific [place] (1.005-1.025) Urine Protein (Negative) Urine Ketones (NEGATIVE) Urine Blood (0-5) Jose/ul Urine Nitrite (NEGATIVE) Urine Bilirubin (NEGATIVE) Urine Urobilinogen (0-1) mg/dL Ur Leukocyte Esterase (NEGATIVE) Urine WBC (Auto) (0-5) /HPF Urine RBC (Auto) (0-2) /HPF U Epithel Cells (Auto) (FEW) /HPF Urine Bacteria (Auto) (NEGATIVE) /HPF Urine Mucus (Auto) (NEGATIVE) /HPF Urine Culture Reflexed (NO) Urine Glucose (NEGATIVE) mg/dL - Radiology Impressions Radiology Exams & Impressions: Radiology Procedures Category Date Time Status ABDOMEN AND PELVIS W/0 CONTRAS [CT] Stat Exams 05/05/19 15:33 Completed CHEST 1 VIEW (PORTABLE) Stat Exams 05/05/19 15:33 Completed - Other Procedures and Tests Respiratory Therapy 05/05/19 21:40 Oxygen NASAL CANNULA 2 lpm Assessment/Plan (1) Dehydration, moderate Current Visit: Yes Status: Acute Assessment & Plan: Last Vital Signs Temp 99.8 F 05/06/19 08:00 Pulse 85 05/06/19 08:00 Resp 18 05/06/19 08:00 BP 131/78 05/06/19 08:00 Pulse Ox 96 05/06/19 08:00 Allergies levofloxacin [From Levaquin] Allergy (Verified 05/05/19 15:32) Rash Active Medications Apixaban (Eliquis 2.5 Mg Tablet) 5 mg PO BID ALDO Stop: 06/04/19 21:59 Last Admin: 05/06/19 09:46 Dose: 5 mg Bumetanide (Bumex 1 Mg) 2 mg PO DAILY ALDO Stop: 06/05/19 09:59 Last Admin: 05/06/19 09:46 Dose: 2 mg Hydromorphone HCl (Dilaudid 2 Mg Injection) 1 mg IV Q4H PRN PRN PRN Reason: PAIN Stop: 05/10/19 19:30 Sodium Chloride (Sodium Chloride 0.9% 1000 Ml) 1,000 mls @ 100 mls/hr IV .Q10H [facility] Stop: 06/04/19 15:44 Last Admin: 05/06/19 08:09 Dose: 100 mls/hr Cefazolin Sodium/Dextrose (Kefzol 1 Gm/50 Ml Premix) 1 gm in 50 mls @ 100 mls /hr IV Q8HT [facility] Stop: 06/04/19 21:59 Last Admin: 05/06/19 06:03 Dose: 100 mls/hr Ondansetron HCl (Zofran 4 Mg/2 Ml Vial) 4 mg IV Q6H PRN PRN PRN Reason: NAUSEA/VOMITING Stop: 06/04/19 19:30 Last Admin: 05/06/19 10:42 Dose: 4 mg Intake & Output 05/05/19 05/06/19 11:59 11:59 Intake Total 543 Output Total 300 Balance 243 Weight 129.9 kg Orders 05/05/19 21:40 Oxygen NASAL CANNULA 2 lpm Pulse Oximetry .spot check 05/05/19 22:00 Apixaban [Eliquis 2.5 mg Tablet] 5 mg PO BID 05/06/19 10:00 Bumetanide 1 mg [Bumex 1 mg] 2 mg PO DAILY Lab Tests 05/05/19 05/05/19 05/05/19 02:50 15:32 15:55 WBC 9.0 RBC 4.93 Hgb 15.4 Hct 43.8 MCV 88.8 MCH 31.2 MCHC 35.2 RDW 13.6 Plt Count 162 MPV 9.0 Gran % 82.9 H Eos # (Auto) 0.02 Absolute Lymphs (auto) 0.68 L Absolute Monos (auto) 0.83 Lymphocytes % 7.5 L Monocytes % 9.2 Eosinophils % 0.2 Basophils % 0.2 Absolute Granulocytes 7.49 H Basophils # 0.02 PT INR Sodium Potassium Chloride Carbon Dioxide Anion Gap BUN Creatinine Estimated GFR Glucose Lactic Acid 1.7 Calcium Total Bilirubin AST ALT Alkaline Phosphatase Troponin I Serum Total Protein Albumin Amylase Lipase Urine Color WILLY Urine Appearance CLEAR Urine pH 6.0 Ur Specific [place] 1.021 Urine Protein NEGATIVE Urine Ketones NEGATIVE Urine Blood SMALL Urine Nitrite NEGATIVE Urine Bilirubin NEGATIVE Urine Urobilinogen 4 Ur Leukocyte Esterase SMALL Urine WBC (Auto) 16-25 Urine RBC (Auto) 51-100 U Epithel Cells (Auto) RARE Urine Bacteria (Auto) RARE Urine Mucus (Auto) SLIGHT Urine Culture Reflexed YES Urine Glucose NEGATIVE 05/05/19 05/05/19 05/05/19 15:55 15:55 18:54 WBC RBC Hgb Hct MCV MCH MCHC RDW Plt Count MPV Gran % Eos # (Auto) Absolute Lymphs (auto) Absolute Monos (auto) Lymphocytes % Monocytes % Eosinophils % Basophils % Absolute Granulocytes Basophils # PT INR Sodium 137 Potassium 3.9 Chloride 98 Carbon Dioxide 31 H Anion Gap 11.6 BUN 19 Creatinine 1.39 H Estimated GFR 51.9 Glucose 136 H Lactic Acid Calcium 9.5 Total Bilirubin 1.10 AST 28 ALT 21 Alkaline Phosphatase 78 Troponin I < 0.012 < 0.012 Serum Total Protein 7.2 Albumin 4.0 Amylase 48 Lipase 50 Urine Color Urine Appearance Urine pH Ur Specific [place] Urine Protein Urine Ketones Urine Blood Urine Nitrite Urine Bilirubin Urine Urobilinogen Ur Leukocyte Esterase Urine WBC (Auto) Urine RBC (Auto) U Epithel Cells (Auto) Urine Bacteria (Auto) Urine Mucus (Auto) Urine Culture Reflexed Urine Glucose 05/05/19 05/06/19 05/06/19 22:00 01:03 03:55 WBC RBC Hgb Hct MCV MCH MCHC RDW Plt Count MPV Gran % Eos # (Auto) Absolute Lymphs (auto) Absolute Monos (auto) Lymphocytes % Monocytes % Eosinophils % Basophils % Absolute Granulocytes Basophils # PT INR Sodium Potassium Chloride Carbon Dioxide Anion Gap BUN Creatinine Estimated GFR Glucose Lactic Acid Calcium Total Bilirubin AST ALT Alkaline Phosphatase Troponin I < 0.012 < 0.012 < 0.012 Serum Total Protein Albumin Amylase Lipase Urine Color Urine Appearance Urine pH Ur Specific [place] Urine Protein Urine Ketones Urine Blood Urine Nitrite Urine Bilirubin Urine Urobilinogen Ur Leukocyte Esterase Urine WBC (Auto) Urine RBC (Auto) U Epithel Cells (Auto) Urine Bacteria (Auto) Urine Mucus (Auto) Urine Culture Reflexed Urine Glucose 05/06/19 05/06/19 03:57 04:30 WBC RBC Hgb Hct MCV MCH MCHC RDW Plt Count MPV Gran % Eos # (Auto) Absolute Lymphs (auto) Absolute Monos (auto) Lymphocytes % Monocytes % Eosinophils % Basophils % Absolute Granulocytes Basophils # PT 21.6 H INR 1.89 Sodium Potassium Chloride Carbon Dioxide Anion Gap BUN Creatinine Estimated GFR Glucose Lactic Acid 1.2 Calcium Total Bilirubin AST ALT Alkaline Phosphatase Troponin I Serum Total Protein Albumin Amylase Lipase Urine Color Urine Appearance Urine pH Ur Specific [place] Urine Protein Urine Ketones Urine Blood Urine Nitrite Urine Bilirubin Urine Urobilinogen Ur Leukocyte Esterase Urine WBC (Auto) Urine RBC (Auto) U Epithel Cells (Auto) Urine Bacteria (Auto) Urine Mucus (Auto) Urine Culture Reflexed Urine Glucose Code(s): E86.0 - DEHYDRATION (2) Mesenteric adenitis Current Visit: Yes Status: Acute Code(s): I88.0 - NONSPECIFIC MESENTERIC LYMPHADENITIS
[2019-05-06] MEDS: TYLENOL 325 MG PO PRN (17:30)
[2019-05-06] MEDS: Compazine 10 MG/2 ML IV PRN (19:31)
[2019-05-06 20:35] LABS: Absolute Neutrophil Ct (ANC) 7.64 (1.4-6.9); BASOPHIL % 0.2 % (0.0-0.4); Basophil (Absolute #) 0.02 (0-0.4); Eosinophil % 0.7 % (0.00-5.0); Eosinophil (Absolute #) 0.07 (0-0.5); Hematocrit 42.5 % (42-50); Hemoglobin 14.7 gm/dl (12.5-18.0); Lymphocyte (Absolute #) 1.48 (1.0-4.6); Lymphocytes % 13.9 % (24.0-44.0); Mean Cell Volume 89.9 fl (78-100); Mean Corpuscular Hemoglobin 31.1 pg (26-32); Mean Corpuscular Hgb Concent. 34.6 g/dl (32-36); Mean Platelet Volume 9.1 fl (7.5-11.0); Monocyte (Absolute #) 1.42 (0.0-1.3); Monocytes % 13.4 % (0.0-12.0); Neutrophil % 71.8 % (36.0-66.0); Platelet Count 158 K/mm3 (150-450); Red Blood Count 4.73 M/mm3 (4.1-5.6); Red Cell Distribution Width 13.6 % (11.5-14.0); White Blood Count 10.6 K/mm3 (4.0-10.5)
[2019-05-06 20:47] LABS: ALBUMIN 3.6 g/dL (3.5-5.0); ANION GAP 13.7 MEQ/L (5-15); Calcium 8.5 mg/dL (8.4-10.2); Creatinine 1 1.4 mg/dL (0.66-1.25); Potassium 3.6 mmol/L (3.5-5.1); Total Protein 6.6 g/dL (6.3-8.2)
[2019-05-06 21:06] LABS: INFLUENZA A NEGATIVE (NEGATIVE); INFLUENZA B NEGATIVE (NEGATIVE); RESPIRATORY SYNCTIAL VIRUS NEGATIVE (Negative)
[2019-05-07] MEDS: Sodium Chloride 0.9% 1000 ML 1,000 ML IV SCH ×2 (03:34→14:06)
[2019-05-07] MEDS: KEFZOL 1 GM/50 ML PREMIX** 1 GM/50 ML IVPB IV SCH ×3 (05:34→21:00)
[2019-05-07] MEDS: Zofran 4 MG/2 ML VIAL IV PRN (08:12)
--- NOTE | 2019-05-07 08:21 | XRAY ---
Indication: Short of breath and fever. Comparison: One day earlier. Portable chest unchanged again demonstrating bibasilar atelectasis/scarring. Remaining heart and upper lungs unremarkable. No new cardiopulmonary abnormalities.
[2019-05-07] MEDS: DILAUDID 2 MG INJECTION IV PRN (08:43)
--- NOTE | 2019-05-07 09:48 | PCM.NOTE ---
Date and Time: 05/07/19939 Subjective Assessment: doing better - Review of Systems Constitutional: No Fever, No Chills Eyes: No Symptoms Ears, Nose, & Throat: No Symptoms Respiratory: No Cough, No Short Of Breath Cardiac: No Chest Pain, No Edema, No Syncope Abdominal/Gastrointestinal: No Abdominal Pain, No Nausea, No Vomiting, No Diarrhea Genitourinary Symptoms: No Dysuria Musculoskeletal: No Back Pain, No Neck Pain Skin: No Rash Neurological: No Dizziness, No Focal Weakness, No Sensory Changes Psychological: No Symptoms Endocrine: No Symptoms Hematologic/Lymphatic: No Symptoms Immunological/Allergic: No Symptoms Objective Exam General Appearance: no apparent distress, alert Neurologic Exam: alert, oriented x 3, cooperative, normal mood/affect, nml cerebellar function, sensation nml, No motor deficits Skin Exam: normal color, warm, dry Eye Exam: PERRL, EOMI, eyes nml inspection Ears, Nose, Throat Exam: normal ENT inspection, pharynx normal, moist mucous membranes Neck Exam: normal inspection, non-tender, supple, full range of motion Respiratory Exam: normal breath sounds, lungs clear, No respiratory distress Cardiovascular Exam: regular rate/rhythm, normal heart sounds Gastrointestinal/Abdomen Exam: soft, No tenderness, No mass Extremity Exam: normal inspection, normal range of motion Back Exam: normal inspection, normal range of motion, No CVA tenderness, No vertebral tenderness Male Genitalia Exam: deferred Rectal Exam: deferred OBJECTIVE DATA Vital Signs: Vital Signs - 24 hr Temp Pulse Resp BP Pulse Ox 05/07/19 08:00 98.9 F 90 24 125/76 95 05/07/19 06:57 93 L 05/07/19 03:56 99.0 F 84 20 108/73 95 05/07/19 00:00 98.9 F 91 H 18 120/73 94 L 05/06/19 20:00 99.3 F 120 H 18 137/72 95 05/06/19 19:42 90 L 05/06/19 16:00 100.1 F 91 H 20 130/65 93 L 05/06/19 12:00 99.5 F 93 H 18 152/73 95 Oxygen-Last 24 hours Oxygen Flowrate (L/min)-RT 2 Oxygen Flowrate (L/min)-RT 2 Pain Assessment - Last Documented Pain Intensity 1 Pain Scale Used 0-10 Pain Scale Intake and Output: Intake & Output 03/22/20 03/23/20 03/24/20 03/25/20 11:59 11:59 11:59 11:59 Intake Total 543 2520 Output Total 1150 2000 Balance -607 520 Weight 129.9 kg Lab Results: Lab Results-Last 24 Hours 05/06/19 05/06/19 05/06/19 Range/Units 20:30 20:30 20:30 WBC 10.6 H (4.0-10.5) K/mm3 RBC 4.73 (4.1-5.6) M/mm3 Hgb 14.7 (12.5-18.0) gm/dl Hct 42.5 (42-50) % MCV 89.9 (78-100) fl MCH 31.1 (26-32) pg MCHC 34.6 (32-36) g/dl RDW 13.6 (11.5-14.0) % Plt Count 158 (150-450) K/mm3 MPV 9.1 (7.5-11.0) fl Gran % 71.8 H (36.0-66.0) % Eos # (Auto) 0.07 (0-0.5) Absolute Lymphs (auto) 1.48 (1.0-4.6) Absolute Monos (auto) 1.42 H (0.0-1.3) Lymphocytes % 13.9 L (24.0-44.0) % Monocytes % 13.4 H (0.0-12.0) % Eosinophils % 0.7 (0.00-5.0) % Basophils % 0.2 (0.0-0.4) % Absolute Granulocytes 7.64 H (1.4-6.9) Basophils # 0.02 (0-0.4) Sodium 136 L (137-145) mmol/L Potassium 3.6 (3.5-5.1) mmol/L Chloride 101 (98-107) mmol/L Carbon Dioxide 25 (22-30) mmol/L Anion Gap 13.7 (5-15) MEQ/L BUN 17 (9-20) mg/dL Creatinine 1.40 H (0.66-1.25) mg/dL Estimated GFR 51.4 ML/MIN Glucose 130 H (74-106) mg/dL Calcium 8.5 (8.4-10.2) mg/dL Total Bilirubin 1.00 (0.2-1.3) mg/dL AST 24 (17-59) U/L ALT 17 (0-50) U/L Alkaline Phosphatase 72 (38-126) U/L Serum Total Protein 6.6 (6.3-8.2) g/dL Albumin 3.6 (3.5-5.0) g/dL Influenza Type A Ag NEGATIVE (NEGATIVE) Influenza Type B Ag NEGATIVE (NEGATIVE) RSV (PCR) NEGATIVE (Negative) Radiology Exams: Radiology Procedures Category Date Time Status ABDOMEN AND PELVIS W/0 CONTRAS [CT] Stat Exams 05/05/19 15:33 Completed CHEST 1 VIEW (PORTABLE) Stat Exams 05/05/19 15:33 Completed CHEST 1 VIEW (PORTABLE) Stat Exams 05/06/19 19:56 Completed Multi-Disciplinary Progress Notes: Multi-Disciplinary Progress Notes 05/06/19 12:07 Case Management Note by Eugenia Marie Spoke with pt regarding needs at home when discharged. Pt denies any needs at this time, will continue to monitor. Initialized on 05/06/19 12:07 - END OF NOTE Assessment/Plan (1) Dehydration, moderate Current Visit: Yes Status: Acute Code(s): E86.0 - DEHYDRATION (2) Mesenteric adenitis Current Visit: Yes Status: Acute Code(s): I88.0 - NONSPECIFIC MESENTERIC LYMPHADENITIS (3) UTI (urinary tract infection) due to Enterococcus Current Visit: Yes Status: Acute Code(s): N39.0 - URINARY TRACT INFECTION, SITE NOT SPECIFIED; B95.2 - ENTEROCOCCUS THE CAUSE OF DISEASES CLASSIFIED ELSEWHERE
[2019-05-07] MEDS: BUMEX 1 MG PO SCH (10:22)
[2019-05-07] MEDS: ELIQUIS 2.5 MG TABLET PO SCH ×2 (10:23→20:59)
[2019-05-08] MEDS: Compazine 10 MG/2 ML IV PRN ×2 (01:22→20:10)
[2019-05-08] MEDS: Sodium Chloride 0.9% 1000 ML 1,000 ML IV SCH ×3 (01:23→22:59)
[2019-05-08] MEDS: KEFZOL 1 GM/50 ML PREMIX** 1 GM/50 ML IVPB IV SCH ×3 (05:43→21:50)
[2019-05-08] MEDS: TYLENOL 325 MG PO PRN (08:12)
[2019-05-08] MEDS: BUMEX 1 MG PO SCH (10:54)
[2019-05-08] MEDS: ELIQUIS 2.5 MG TABLET PO SCH ×2 (10:54→21:50)
[2019-05-08] MEDS: Zofran 4 MG/2 ML VIAL IV PRN (17:35)
[2019-05-09 05:02] LABS: Absolute Neutrophil Ct (ANC) 6.06 (1.4-6.9); BASOPHIL % 0.4 % (0.0-0.4); Basophil (Absolute #) 0.03 (0-0.4); Eosinophil % 1.4 % (0.00-5.0); Eosinophil (Absolute #) 0.12 (0-0.5); Hematocrit 35.2 % (42-50); Lymphocyte (Absolute #) 1.35 (1.0-4.6); Mean Cell Volume 90.7 fl (78-100); Mean Corpuscular Hemoglobin 30.9 pg (26-32); Mean Corpuscular Hgb Concent. 34.1 g/dl (32-36); Mean Platelet Volume 9.2 fl (7.5-11.0); Monocyte (Absolute #) 0.87 (0.0-1.3); Monocytes % 10.3 % (0.0-12.0); Neutrophil % 71.9 % (36.0-66.0); Platelet Count 164 K/mm3 (150-450); Red Blood Count 3.88 M/mm3 (4.1-5.6); Red Cell Distribution Width 13.5 % (11.5-14.0); White Blood Count 8.4 K/mm3 (4.0-10.5)
[2019-05-09 05:21] LABS: ANION GAP 8.1 MEQ/L (5-15); BLOOD UREA NITROGEN 16 mg/dL (9-20); CHLORIDE 103 mmol/L (98-107); Calcium 7.9 mg/dL (8.4-10.2); Carbon Dioxide 27 mmol/L (22-30); Creatinine 1 1.21 mg/dL (0.66-1.25); Glucose 97 mg/dL (74-106); Potassium 3.2 mmol/L (3.5-5.1); SODIUM 136 mmol/L (137-145)
[2019-05-09] MEDS: KEFZOL 1 GM/50 ML PREMIX** 1 GM/50 ML IVPB IV SCH (05:35)
[2019-05-09] MEDS ORDERED: Klor Con 10 MEQ PO ONE (10:30)
[2019-05-09] MEDS: ELIQUIS 2.5 MG TABLET PO SCH (10:41)
[2019-05-09] MEDS: BUMEX 1 MG PO SCH (10:41)
[2019-05-09 11:35] VITALS: BP 122/79; PULSE 80; O2SAT 95
--- NOTE | 2019-05-09 11:40 | PCM.DS ---
Discharge Summary Date of Admission: 05/06/19 11:26 Admitting Physician: CALLIE MELO Primary Care Provider: CALLIE MELO Allergies Allergies levofloxacin [From Levaquin] Allergy (Verified 05/05/19 15:32) Rash Hospital Summary - Hospital Course Hospital Course: Chief Complaint Diagnosis MESENTERIC ADENITIS Allergies Allergy/AdvReac Type Severity Reaction Status Date / Time levofloxacin [From Levaquin] Allergy Rash Verified 05/05/19 15:32 Vital Signs (Last 24 hours) Temp Pulse Resp BP Pulse Ox 05/09/19 11:34 99.2 F 80 80 H 122/79 95 05/09/19 08:00 97.9 F 83 24 127/78 97 05/09/19 06:37 94 L 05/09/19 03:46 98.6 F 85 18 121/65 98 05/08/19 23:38 98.9 F 90 20 119/59 95 05/08/19 21:30 88 L 05/08/19 20:00 98.8 F 136 H 20 149/81 94 L 05/08/19 16:00 99.2 F 89 18 120/89 93 L 05/08/19 12:00 98.6 F 67 18 109/60 95 Home Medications Medication Instructions Recorded Confirmed Last Taken Type Apixaban [Eliquis] 5 mg PO DAILY #0 05/09/19 05/05/19 05/05/19 Rx Cephalexin [Keflex] 500 mg PO QID 5 Days #20 capsule 05/09/19 Unknown Rx Potassium Chloride 10 meq PO DAILY #30 tablet.er 05/09/19 Unknown Rx Current Medications Generic Name Dose Route Start Last Admin Trade Name Freq PRN Reason Stop Dose Admin Acetaminophen 650 mg 05/06/19 17:07 05/08/19 08:12 Tylenol 325 Mg PO 06/05/19 17:06 650 mg Q4H PRN PRN Administration PAIN AND/OR FEVER Apixaban 5 mg 05/05/19 22:00 05/09/19 10:41 Eliquis 2.5 Mg Tablet PO 06/04/19 21:59 5 mg BID ALDO Administration Bumetanide 2 mg 05/06/19 10:00 05/09/19 10:41 Bumex 1 Mg PO 06/05/19 09:59 2 mg DAILY ALDO Administration Hydromorphone HCl 1 mg 05/05/19 19:31 05/07/19 08:43 Dilaudid 2 Mg Injection IV 05/10/19 19:30 1 mg Q4H PRN PRN Administration PAIN Sodium Chloride 1,000 mls @ 100 mls/hr 05/05/19 15:45 05/08/19 22:59 Sodium Chloride 0.9% 1000 Ml IV 06/04/19 15:44 100 mls/hr .Q10H ALDO Administration Cefazolin Sodium/Dextrose 1 gm in 50 mls @ 100 mls/hr 05/05/19 22:00 05:35 Kefzol 1 Gm/50 Ml Premix IV 06/04/19 21:59 100 mls/hr Q8HT ALDO Administration Ondansetron HCl 4 mg 05/05/19 19:31 05/08/19 17:35 Zofran 4 Mg/2 Ml Vial IV 06/04/19 19:30 4 mg Q6H PRN PRN Administration NAUSEA/VOMITING Prochlorperazine Edisylate 5 mg 05/06/19 12:45 05/08/19 20:10 Compazine 10 Mg/2 Ml IV 06/05/19 12:44 5 mg Q6H PRN PRN Administration NAUSEA Discontinued Medications Generic Name Dose Route Start Last Admin Trade Name Freq PRN Reason Stop Dose Admin Apixaban 5 mg 05/06/19 10:00 Eliquis 2.5 Mg Tablet PO 06/05/19 09:59 BID ALDO Fentanyl Citrate 50 mcg 05/05/19 15:32 05/05/19 16:13 Sublimaze 100 Mcg/2 Ml IV 05/05/19 15:33 50 mcg STAT ONE Administration Fentanyl Citrate Confirm 05/05/19 15:41 Sublimaze 100 Mcg/2 Ml Administered 05/05/19 15:42 Dose 100 mcg .ROUTE .STK-MED ONE Hydromorphone HCl 1 mg 05/05/19 17:03 05/05/19 17:26 Hydromorphone 1 Mg/Ml Ampule IV 05/05/19 17:04 1 mg STAT ONE Administration Hydromorphone HCl Confirm 05/05/19 17:24 Hydromorphone 1 Mg/Ml Ampule Administered 05/05/19 17:25 Dose 1 mg .ROUTE .STK-MED ONE Ondansetron HCl 4 mg 05/05/19 15:32 05/05/19 16:14 Zofran 4 Mg/2 Ml Vial IV 05/05/19 15:33 4 mg STAT ONE Administration Ondansetron HCl Confirm 05/05/19 15:41 Zofran 4 Mg/2 Ml Vial Administered 05/05/19 15:42 Dose 4 mg .ROUTE .STK-MED ONE Ondansetron HCl Confirm 05/05/19 19:04 Zofran 4 Mg/2 Ml Vial Administered 05/05/19 19:05 Dose 4 mg .ROUTE .STK-MED ONE Ondansetron HCl 4 mg 05/05/19 19:18 05/05/19 19:20 Zofran 4 Mg/2 Ml Vial IV 05/05/19 19:19 4 mg STAT ONE Administration Pantoprazole Sodium 40 mg 05/05/19 15:32 05/05/19 16:12 Protonix 40mg Tablet PO 05/05/19 15:33 40 mg STAT ONE Administration Pantoprazole Sodium Confirm 05/05/19 15:41 Protonix 40mg Tablet Administered 05/05/19 15:42 Dose 40 mg .ROUTE .STK-MED ONE Potassium Chloride 40 meq 05/09/19 10:30 05/09/19 10:41 Klor Con 10 Meq PO 05/09/19 10:31 40 meq STAT ONE Administration Intake & Output (Last 24 hours) 05/06/19 05/07/19 05/08/19 05/09/19 11:59 11:59 11:59 11:59 Intake Total 543 2700 3593 2822 Output Total 1150 2000 250 Balance -736 701 9909 2572 Weight 129.9 kg 129.9 kg Laboratory Results (Last 24 hours) 05/09/19 05/09/19 05:05 05:05 WBC 8.4 RBC 3.88 L Hgb 12.0 L Hct 35.2 L MCV 90.7 MCH 30.9 MCHC 34.1 RDW 13.5 Plt Count 164 MPV 9.2 Gran % 71.9 H Eos # (Auto) 0.12 Absolute Lymphs (auto) 1.35 Absolute Monos (auto) 0.87 Lymphocytes % 16.0 L Monocytes % 10.3 Eosinophils % 1.4 Basophils % 0.4 Absolute Granulocytes 6.06 Basophils # 0.03 Sodium 136 L Potassium 3.2 L Chloride 103 Carbon Dioxide 27 Anion Gap 8.1 BUN 16 Creatinine 1.21 Estimated GFR > 60.0 Glucose 97 Calcium 7.9 L Orders (Last 24 hours) Category Date Time Status Emerson Diet Diet 05/09/19 Lunch Active Discharge Routine Discharge 05/09/19 Ordered Discharge/Telephone Order Routine Discharge 05/09/19 Active BMP AM.LAB Lab 05/09/19 05:05 Completed CBC W DIFF AM.LAB Lab 05/09/19 05:05 Completed Potassium Chloride 10 Meq Tab* [Klor Con 10 MEQ] Med 05/09/19 10:30 Discontinued 40 meq PO STAT ONE Patient Care Notes (Last 24 hours) 05/09/19 10:55 Nursing Note by Dayami Domínguez Discharge instructions and education given and understood. Initialized on 05/09/19 10:55 - END OF NOTE 05/09/19 09:47 Nursing Note by Eugenia Marie placed on RA Initialized on 05/09/19 09:47 - END OF NOTE 05/09/19 09:44 Case Management Note by Eugenia Marie Spoke with pt about hx of sleep apnea. pt says he has a bipap machine at home but that he rarely uses it. informed pt that he needs to use it as his oxygen saturation is dropping to 88% with out it. Initialized on 05/09/19 09:44 - END OF NOTE 05/08/19 17:30 (created 05/08/19 18:46) Nursing Note by Diana Caputo Pt reported sudden onset of nausea with vomitting. Vomitted aprox 250ml of emesis. given phenergan per md order. Pt continues to report ABD pain. Will monitor Initialized on 05/08/19 18:46 - END OF NOTE 05/08/19 14:19 Nursing Note by Eugenia Marie O2sat 94% on RA. Initialized on 05/08/19 14:19 - END OF NOTE 05/08/19 13:42 Nursing Note by Eugenia Marie placed on room air. Initialized on 05/08/19 13:42 - END OF NOTE 05/08/19 12:55 Case Management Note by Eugenia Marie no changes in discharge plan. pt plans to return home self-care. will continue to monitor. Initialized on 05/08/19 12:55 - END OF NOTE - Vitals & Intake/Output Vital Signs: Vital Signs Temperature 99.2 F 05/09/19 11:34 Pulse Rate 80 05/09/19 11:34 Respiratory Rate 80 H 05/09/19 11:34 Blood Pressure 122/79 05/09/19 11:34 O2 Sat by Pulse Oximetry 95 05/09/19 11:34 Intake & Output: Intake & Output 05/06/19 05/07/19 05/08/19 05/09/19 11:59 11:59 11:59 11:59 Intake Total 543 2520 3593 2822 Output Total 1150 2000 250 Balance -132 342 2961 2572 Weight 129.9 kg 129.9 kg - Lab Result Diagrams: 05/09/19 05:05 05/09/19 05:05 Lab Results-Last 24 Hrs: Lab Results-Last 24 Hours 05/09/19 05/09/19 Range/Units 05:05 05:05 WBC 8.4 (4.0-10.5) K/mm3 RBC 3.88 L (4.1-5.6) M/mm3 Hgb 12.0 L (12.5-18.0) gm/dl Hct 35.2 L (42-50) % MCV 90.7 (78-100) fl MCH 30.9 (26-32) pg MCHC 34.1 (32-36) g/dl RDW 13.5 (11.5-14.0) % Plt Count 164 (150-450) K/mm3 MPV 9.2 (7.5-11.0) fl Gran % 71.9 H (36.0-66.0) % Eos # (Auto) 0.12 (0-0.5) Absolute Lymphs (auto) 1.35 (1.0-4.6) Absolute Monos (auto) 0.87 (0.0-1.3) Lymphocytes % 16.0 L (24.0-44.0) % Monocytes % 10.3 (0.0-12.0) % Eosinophils % 1.4 (0.00-5.0) % Basophils % 0.4 (0.0-0.4) % Absolute Granulocytes 6.06 (1.4-6.9) Basophils # 0.03 (0-0.4) Sodium 136 L (137-145) mmol/L Potassium 3.2 L (3.5-5.1) mmol/L Chloride 103 (98-107) mmol/L Carbon Dioxide 27 (22-30) mmol/L Anion Gap 8.1 (5-15) MEQ/L BUN 16 (9-20) mg/dL Creatinine 1.21 (0.66-1.25) mg/dL Estimated GFR > 60.0 ML/MIN Glucose 97 (74-106) mg/dL Calcium 7.9 L (8.4-10.2) mg/dL Micro Results-Entire Visit: Microbiology 05/05/19 02:50 Urine Culture - Final Clean Catch Midstream NO GROWTH - Procedures and Test Procedures and Tests throughout Hospitalization: Therapy Orders & Screens 05/05/19 21:40 Oxygen NASAL CANNULA 2 lpm Comment: Diagnosis: mesenteric adenitis Discharge Exam General Appearance: no apparent distress, alert Neurologic Exam: alert, oriented x 3, cooperative, normal mood/affect, nml cerebellar function, sensation nml, No motor deficits Eye Exam: PERRL, EOMI, eyes nml inspection Ears, Nose, Throat Exam: normal ENT inspection, pharynx normal, moist mucous membranes Neck Exam: normal inspection, non-tender, supple, full range of motion Respiratory Exam: normal breath sounds, lungs clear, No respiratory distress Cardiovascular Exam: regular rate/rhythm, normal heart sounds Gastrointestinal/Abdomen Exam: soft, No tenderness, No mass Male Genitalia Exam: deferred Rectal Exam: deferred Back Exam: normal inspection, normal range of motion, No CVA tenderness, No vertebral tenderness Extremity Exam: normal inspection, normal range of motion Skin Exam: normal color, warm, dry Final Diagnosis/Problem List - Final Discharge Diagnosis/Problem (1) UTI (urinary tract infection) due to Enterococcus Current Visit: Yes Status: Acute Assessment & Plan: Last Vital Signs Temp 99.2 F 05/09/19 11:34 Pulse 80 05/09/19 11:34 Resp 80 H 05/09/19 11:34 BP 122/79 05/09/19 11:34 Pulse Ox 95 05/09/19 11:34 Allergies levofloxacin [From Levaquin] Allergy (Verified 05/05/19 15:32) Rash Active Medications Acetaminophen (Tylenol 325 Mg) 650 mg PO Q4H PRN PRN PRN Reason: PAIN AND/OR FEVER Stop: 06/05/19 17:06 Last Admin: 05/08/19 08:12 Dose: 650 mg Apixaban (Eliquis 2.5 Mg Tablet) 5 mg PO BID [facility] Stop: 06/04/19 21:59 Last Admin: 05/09/19 10:41 Dose: 5 mg Bumetanide (Bumex 1 Mg) 2 mg PO DAILY ALDO Stop: 06/05/19 09:59 Last Admin: 05/09/19 10:41 Dose: 2 mg Hydromorphone HCl (Dilaudid 2 Mg Injection) 1 mg IV Q4H PRN PRN PRN Reason: PAIN Stop: 05/10/19 19:30 Last Admin: 05/07/19 08:43 Dose: 1 mg Sodium Chloride (Sodium Chloride 0.9% 1000 Ml) 1,000 mls @ 100 mls/hr IV .Q10H [facility] Stop: 06/04/19 15:44 Last Admin: 05/08/19 22:59 Dose: 100 mls/hr Cefazolin Sodium/Dextrose (Kefzol 1 Gm/50 Ml Premix) 1 gm in 50 mls @ 100 mls /hr IV Q8HT [facility] Stop: 06/04/19 21:59 Last Admin: 05/09/19 05:35 Dose: 100 mls/hr Ondansetron HCl (Zofran 4 Mg/2 Ml Vial) 4 mg IV Q6H PRN PRN PRN Reason: NAUSEA/VOMITING Stop: 06/04/19 19:30 Last Admin: 05/08/19 17:35 Dose: 4 mg Prochlorperazine Edisylate (Compazine 10 Mg/2 Ml) 5 mg IV Q6H PRN PRN PRN Reason: NAUSEA Stop: 06/05/19 12:44 Last Admin: 05/08/19 20:10 Dose: 5 mg Intake & Output 05/08/19 05/09/19 11:59 11:59 Intake Total 3593 2822 Output Total 250 Balance 3593 2572 Weight 129.9 kg Orders 05/09/19 Discharge Routine Discharge/Telephone Order Routine 05/09/19 Lunch Emerson Diet Lab Tests 05/09/19 05/09/19 05:05 05:05 WBC 8.4 RBC 3.88 L Hgb 12.0 L Hct 35.2 L MCV 90.7 MCH 30.9 MCHC 34.1 RDW 13.5 Plt Count 164 MPV 9.2 Gran % 71.9 H Eos # (Auto) 0.12 Absolute Lymphs (auto) 1.35 Absolute Monos (auto) 0.87 Lymphocytes % 16.0 L Monocytes % 10.3 Eosinophils % 1.4 Basophils % 0.4 Absolute Granulocytes 6.06 Basophils # 0.03 Sodium 136 L Potassium 3.2 L Chloride 103 Carbon Dioxide 27 Anion Gap 8.1 BUN 16 Creatinine 1.21 Estimated GFR > 60.0 Glucose 97 Calcium 7.9 L Code(s): N39.0 - URINARY TRACT INFECTION, SITE NOT SPECIFIED; B95.2 - ENTEROCOCCUS THE CAUSE OF DISEASES CLASSIFIED ELSEWHERE (2) Dehydration, moderate Current Visit: Yes Status: Acute Code(s): E86.0 - DEHYDRATION (3) Mesenteric adenitis Current Visit: Yes Status: Acute Code(s): I88.0 - NONSPECIFIC MESENTERIC LYMPHADENITIS - Discharge Discharge Date: 05/09/19 Disposition: Home, Self-Care Condition: Fair Prescriptions: New Cephalexin [Keflex] 500 mg PO QID 5 Days #20 capsule Potassium Chloride 10 meq PO DAILY #30 tablet.er Continue Bumetanide 1 mg [Bumex 1 mg] 2 mg PO DAILY Changed Apixaban [Eliquis] 5 mg PO DAILY #0 Instructions: Mesenteric Lymphadenitis (DC) Follow up with: CALLIE MELO MD [Primary Care Provider] - 05/16/19 9:45 am Forms: Discharge Instructions
== END 2019-05-09 12:24 | disposition home or self-care (01) | DRG 690 ==
LOC: ED 14:56 → MED SURG 19:23 → OBSVTOIN 05-06 11:26
PROVIDERS: ADMIT General Practice; ATTEND General Practice
DX: N39.0 Urinary tract infection, site not specified (principal); B95.2 Enterococcus as the cause of diseases classified elsewhere; E86.0 Dehydration; R11.10 Vomiting, unspecified; R10.33 Periumbilical pain; R53.83 Other fatigue; R53.1 Weakness; I88.0 Nonspecific mesenteric lymphadenitis; Z79.01 Long term (current) use of anticoagulants; Z79.899 Other long term (current) drug therapy; Z86.718 Personal history of other venous thrombosis and embolism; Z95.828 Presence of other vascular implants and grafts
CPT/HCPCS: 36415; 71045; 74176; 80048; 80053; 81001; 82150; 83605; 83690; 84484; 85025; 85610; 87086; 87631; 93005; 94760; 96360; 96374; 96375; 96376; 99285; G0378; J0690; J1170; J2405; J3010; A9270-GY